=== PATIENT | female | born 1955 | race Caucasian/White ===

== ENCOUNTER 2017-05-13 19:43 | Inpatient (IN) | payer OTHER ==
[~2017-05-13] VITALS: Ht 165.1 cm; Wt 95.0 kg
[2017-05-13 19:49] VITALS: PULSE 158; RESP 18; O2SAT 97
--- NOTE | 2017-05-13 20:01 | ED.REPORT ---
HPI-Chest Pain 40 and Over Date of Service May 13, 2017 ED Provider: Attila Giron DO Pt is a 61 year old female with a history of A-fib and mitral valve repair who presents to the ED with concerns that she is having A-fib at this time onset 2 days ago. She reports that she feels like her heart is racing and having palpitations. Per pt, she had a mitral valve repair on 04/23/17 which was conducted through the rib. She was not prescribed any blood thinners, but she reports that she was taken off of Metoprolol 2 days ago. Nursing Notes Stated Complaint: AFIB/RAPID HEART RATE Chief Complaint: Chest Pain Nursing Notes Reviewed: Yes Allergies: Coded Allergies: No Known Allergies (Unverified , 05/13/17) Scheduled Aspirin Chew (Aspirin Chew) 81 Mg Chew 81 MG PO DAILY Colchicine (Colchicine) 0.6 Mg Tablet 0.6 MG PO DAILY Folic Acid (Folic Acid) 1 Mg Tablet 1 MG PO DAILY Multivitamin (Multi Vitamin Daily) 1 Each Tablet 1 EACH PO DAILY Scheduled PRN oxyCODONE-Acetaminophen 5-325 mg (oxyCODONE-Acetaminophen 5-325 mg) 1 Each Tablet 1 TAB PO Q4H PRN PRN For Pain General Time Seen by MD: 20:01 Chief Complaint Other (Rapid heart rate) Hx Obtained From: Patient Arrived By: Walk-in Sudden in Onset?: No Onset Occurred: 2 days ago Symptom Duration: Since onset Severity: Current: No pain currently Severity: Maximum: No pain Recent Healthcare: No recent doctor visit, No recent hospitalization Similar Sx Previous: Yes Past Medical History Past Medical History A-fib Past Surgical History Mitral valve repair Smoking History Unknown if Ever Smoker Social History Other Social History: Good social support Ambulatory Status Independent Review of Systems + Rapid heart rates + Sensation to palpations Constitutional: Denies: Fever Respiratory: Denies: Non-productive cough Complete sys rev & neg: except as marked. Physical Exam Initial Vital Signs Vital Signs (First) Date Time Temp Pulse Resp B/P Pulse Ox O2 Delivery O2 Flow Rate FiO2 05/13/17 19:49 36 158 18 97 Room Air 05/13/17 20:02 135/78 05/13/17 20:51 2 Initial VS: Reviewed Head / Eyes: Atraumatic, Normocephalic, PERRL ENT: Mucous membranes moist, Conjunctiva normal, No scleral icterus Extremities: Vascular intact, Neuro intact Skin: Warm, Dry, No cyanosis Neurologic: Alert, Oriented, Nonfocal Psychiatric: Mood/affect normal, Behavior normal General/Constitutional: Awake, Alert, Cooperative, Not toxic appearing Distress / Hydration: Positive: Distress mild Respiratory / Chest: Atraumatic, Breath sounds NL, Breath sounds = bilat CARDIOVASCULAR: Heart rate is too rapid to count; irregular at times and regular at other times. ECG shows flutter rate of 300. Abdomen: Atraumatic, Soft, Non-tender Benign. Interpretation & Diagnostics Lab Results Interpretation Result Diagram: 05/13/17195405/13/171954 Test 05/13/17 19:55 White Blood Count 8.5th/mm3 (3.8-10.1) Red Blood Count 4.26mil/mm3 (3.90-5.20) Hemoglobin 13.2g/dL (12.0-15.6) Hematocrit 38.4% (35.0-46.0) Mean Corpuscular Volume 90.1fL (81-100) Mean Corpuscular Hemoglobin 31.0pg (27.0-35.0) Mean Corpuscular Hemoglobin Concent 34.4% (32.0-37.0) Red Cell Distribution Width 12.0% (12.3-15.4) Platelet Count 313bil/L (150-400) Neutrophils (%) (Auto) 64.0% (40-74) Lymphocytes (%) (Auto) 25.2% (14-46) Monocytes (%) (Auto) 8.2% (4-12) Eosinophils (%) (Auto) 2.0% (0-5) Basophils (%) (Auto) 0.4% (0-3) Prothrombin Time 10.2sec (8.1-12.5) Prothromb Time International Ratio 0.95ratio Sodium Level 140mEq/L (134-144) Potassium Level 4.3mEq/L (3.5-5.2) Chloride Level 103mEq/L (97-108) Carbon Dioxide Level 21mmol/L (18-29) Blood Urea Nitrogen 15mg/dL (8-27) Creatinine 0.62mg/dL (0.57-1.00) Estimat Glomerular Filtration Rate 141mL/min (>59) Glucose Level 107mg/dL (60-99) Calcium Level 9.3mg/dL (8.5-10.1) Magnesium Level 1.8mg/dL (1.6-2.6) Total Bilirubin 0.3mg/dL (0.0-1.2) Aspartate Amino Transf (AST/SGOT) 17U/L (0-50) Alanine Aminotransferase (ALT/SGPT) 11U/L (0-32) Alkaline Phosphatase 42U/L (25-165) Troponin T < 0.010ug/L (0.0-0.011) Total Protein 7.0g/dL (6.4-8.4) Albumin 4.2g/dL (3.4-5.0) Thyroid Stimulating Hormone (TSH) 1.550uIU/mL (0.450-4.500) Hold Griffith Top Tube Received (Received) ECG Interpretation ECG Interpretation: Atrial flutter with 2:1 AV block IVCD, consider atypical RBBB LVH with secondary repolarization abnormality NO previous ECG available for comparison Time: 19:57 Interpreted by: ED physician Rhythm Strip Interpretation : Rhythm Strip Interpretation: Rate of 160 with flutter. Time: 20:02 Rhythm Strip Interpretation: Interpreted by me, Atrial fibrillation (Flutter ) CBC Interpretation CBC normal BMP / CMP Interpretation BMP/CMP normal X-Ray Chest Interpretation Chest Xray Interpretation: IMPRESSION: 1. Probable atelectasis at the right lung base in the left midlung as above. However, short interval followup is recommended to ensure resolution of these findings exclude underlying pulmonary pathology. Dictated by: Mabel Camp M.D. on 05/13/2017 at 20:45 View: Portable, 1 view Interpretation / Wet Read by: Interpret - Radiologist Re-Eval/Medical Decision Source of Hx: Old records Time of Eval: 21:22 Re-Evaluation/Progress Note: Cardizem drip infusion. Heart rate down to 77. I consulted with her cardiac surgeon, Dr. Haywood. He concurs and recommends considering echo and cardioversion. He also recommends 6 weeks of anticoagulation. Consultation : Referral / Consult Name: Oni Lopez MD Consulted With: Hospitalist Call Returned at: 21:32 Librarian Helper: Will see patient, Agrees with eval, Agrees with plan, Accepts admit Counseled Regarding: Diagnosis, Lab results, Need for admission Discharge & Departure Primary Impression: Atrial flutter with rapid ventricular response Disposition: ADMITTED TO HOSPITAL Discharge Condition All VS Reviewed: Yes Condition: Stable Referrals: Robel Dominguez MD (Family) Crit Care Except Billable Proc Time Spent: 30-74 minutes (60 minutes managing cardizem drip and rate control.) Scribe Attestation Portions of this note were transcribed by Carol Hennessy. I, Dr. Giron personally performed the history, physical exam and medical decision-making; I reviewed and confirmed the accuracy of the information in the transcribed note. Signed by: Devon Montanez, 05/13/17 and 21:50. copies to: Robel Dominguez MD, Todd P DO May 13, 2017 20:01 Carol Saldivar May 13, 2017 21:14
[2017-05-13 20:02] VITALS: BP 135/78; PULSE 152; RESP 20; O2SAT 96
[2017-05-13 20:05] LABS: BASOPHILS % (AUTO) 0.4 % (0-3); MONOCYTES % (AUTO) 8.2 % (4-12); Mean Corpuscular Volume 90.1 fL (81-100); Platelet Count 313 bil/L (150-400)
[2017-05-13] MEDS ORDERED: Diltiazem Inj 125 MG in 0.9% Sodium Chloride 100 ML, Pharmacy To Mix 1 EA IV SCH (20:05)
[2017-05-13] MEDS ORDERED: Diltiazem 5 mg/mL 5 mL Inj IVPUSH ONE (20:05)
[2017-05-13] MEDS ORDERED: 0.9% Sodium Chloride 1,000 ML IV ONE (20:05)
[2017-05-13 20:26] LABS: INR 0.95 ratio
[2017-05-13] MEDS ORDERED: MULT-1018 PO (20:31)
[2017-05-13] MEDS ORDERED: ASPI81TA3 PO (20:31)
[2017-05-13] MEDS ORDERED: OXYC1TAB24 PO (20:31)
[2017-05-13] MEDS ORDERED: COLC0.6T55 PO (20:31)
[2017-05-13] MEDS ORDERED: FOLI1TAB18 PO (20:31)
--- NOTE | 2017-05-13 20:48 | DRSVH ---
PROCEDURE: X-RAY CHEST ONE VIEW, PORTABLE ([id number]) INDICATIONS: rapid heart rate TECHNIQUE: One view of the chest was acquired. COMPARISON: None. FINDINGS: Surgical changes and devices: None. Lungs and pleura: Trace atelectasis is present within the left midlung and the right lung base. No ot her acute pulmonary radiopacities. No pleural effusion or pneumothorax. Mediastinum: Mediastinal contours appear normal. Heart size is normal. Bones and chest wall: No suspicious bony lesions. Overlying soft tissues appear unremarkable. IMPRESSION: 1. Probable atelectasis at the right lung base in the left midlung as above. However, short interval followup is recommended to ensure resolution of these findings exclude underlying pulmonary pathology . Dictated by: Mabel Camp M.D. on 05/13/2017 at 20:45 Approved by: Mabel Camp M.D. on 05/13/2017 at 20:46
[2017-05-13 20:50] LABS: Magnesium 1.8 mg/dL (1.6-2.6)
[2017-05-13 20:51] VITALS: BP 118/67; PULSE 78; RESP 14; O2SAT 99
[2017-05-13 20:52] LABS: TROPONIN T < 0.010 ug/L (0.0-0.011)
[2017-05-13] MEDS ORDERED: Heparin 25K Unit/500mL 0.45 NS 25,000 UNIT in IV Premix 1 EACH IV SCH ×3 (21:20→22:40)
[2017-05-13] MEDS ORDERED: Heparin 5,000 Unit/mL Inj IVPUSH ONE (21:20)
[2017-05-13] MEDS ORDERED: Heparin 5,000 Unit/mL Inj IVPUSH PRN (21:20)
[2017-05-13 22:01] VITALS: BP 147/53; PULSE 76; RESP 14; O2SAT 100
[2017-05-13] MEDS ORDERED: HYDROcodone-APAP 5-325 mg Tablet PO PRN (22:25)
[2017-05-13] MEDS ORDERED: Alum-Mag Hydrox-Simeth 30 mL Suspension PO PRN (22:25)
[2017-05-13] MEDS ORDERED: Ondansetron 2 mg/mL 2 mL Inj IVPUSH PRN (22:25)
[2017-05-13] MEDS ORDERED: Polyethylene Glycol (PEG) 17 Gm Powder PO PRN (22:25)
[2017-05-13 22:38] VITALS: BP 117/54; PULSE 78; RESP 17; O2SAT 95
[2017-05-13] MEDS: oxyCODONE-Acetamin 5-325 mg Tablet PO PRN (23:20)
--- NOTE | 2017-05-13 23:37 | PCM.HPMED ---
Subjective Date of Service May 13, 2017 Primary Provider: Admitting Physician: Oni Lopez MD Primary Care Physician: Ibeth Shine MD Attending Physician: Oni Lopez MD Chief Complaint: Fast heart rate History of Present Illness: 61-year-old woman with history of mitral valve repair roughly 19 days ago presents with feeling of her heart beating very fast, and some lightheadedness. She denies any shortness of breath, but does claim to have substernal chest pain when taking a deep breath. Current medications are only colchicine, Arellano catheter, and aspirin 81 mg daily. Symptoms started 2 days ago, which she describes as "A.fib" not currently on any blood thinners, was taken off metoprolol 2 days ago for low blood pressure. On presentation temperature 36 mL 158, 18, 135/78, 97% on room air. CBC unremarkable CMP unremarkable INR 0.95 magnesium 1.8 troponin negative. TSH 1.55 EKG atrial flutter with 2-1 AV block, "IVCD, consider atypical RBBB, LVH with secondary repolarization abnormality, no previous EKG to compare." No signs of acute ischemia, infarction. QTC 543 Chest x-ray showed probable atelectasis in the right lung base and left midlung. Emergency room physician spoke with her information services consultant wanted her to be heparinized and 6 weeks of anticoagulation and apparently has an appointment on Thursday. Cardiology on-call for [facility] was consulted who said they would see her in the morning. Patient was started on Cardizem drip after not responding to Cardizem bolus, and heparin drip was started. Her rate became controlled in the 70s and 80s, however remained atrial flutter. Review of Systems: A comprehensive review of systems was conducted with the patient and found to be negative except as above in the history of presenting illness. Allergies Coded Allergies: No Known Allergies (Unverified , 05/13/17) Home Medications ASA 81 mg daily Colchicine 0.6 mg daily Folic acid 1 mg by mouth daily Multivitamin Oxycodone-acetaminophen 5-325 every 4 hours when necessary postsurgical pain PMH Hypothyroidism Surgical History Mitral valvuloplasty with ring placement to [place] valve. Left knee meniscus repair Endometrial ablation Family History Father CVA Mother renal failure, diabetes mellitus type II late onset, hypertension, also had heart valve issues. Social History Hx Alcohol Use: Yes (2 drinks a day) Hx Substance Use: No Hx Tobacco Use: Yes Smoking Status: Former Smoker (quit 05/29/1977), Unknown if Ever Smoker Living Arrangement: with Family Exam Vital Signs Vital Sign - Last Date Time Temp Pulse Resp B/P Pulse Ox O2 Delivery O2 Flow Rate FiO2 05/13/17 22:01 76 14 147/53 100 Room Air 05/13/17 20:51 2 05/13/17 19:49 36 Exam General: Laying in bed, no apparent distress. HEENT: Normocephalic, atraumatic, EOMI grossly, mucous membranes moist, neck supple without lymphadenopathy, PERRLA, conjunctiva pink. Cardiovascular: Regular rate and rhythm, no clicks murmurs rubs, peripheral pulses 2/4 equal bilaterally- rhythm on monitor shows heart rate 77, 2-1 atrial flutter. Pulmonary: Bibasilar rales, right greater than left. Abdominal: Soft to palpation, bowel sounds present 4, no hepatosplenomegaly. Negative rebound. Extremities: No edema appreciated. No tenderness, asymmetry. Neuro: Neurologically grossly intact, strength is equal bilaterally upper and lower extremities. MSK: Able to move extremities on their own volition, strength 5 out of 5 equal bilaterally to upper and lower extremities. Psych: Oriented to person place time and situation. Appropriate mood and affect. Lab and Diagnostics Result Diagram: 05/13/17195405/13/171954 X-Rays, CTs and MRIs Chest x-ray performed 05/13/2017 IMPRESSION: 1. Probable atelectasis at the right lung base in the left midlung as above. However, short interval followup is recommended to ensure resolution of these findings exclude underlying pulmonary pathology. Dictated by: Mabel Camp M.D. on 05/13/2017 at 20:45 12-lead ECG EKG atrial flutter with 2-1 AV block, "IVCD, consider atypical RBBB, LVH with secondary repolarization abnormality, no previous EKG to compare." No signs of acute ischemia, infarction. QTC 543 Assessment & Plan 61-year-old woman with hypothyroidism who is status post mitral repair and ring placement postop day 20 now, not on anticoagulation, experienced rapid heart rate worsening over the last 2 days, found to be in atrial flutter treated with diltiazem drip, and is now rate controlled but is still in atrial flutter. Acute refractory atrial flutter, present on admission, active EKG showed atrial flutter, 2-1 block, initially refractory to diltiazem bolus, rate controlled to diltiazem drip, still in a flutter. Chronic valve disease status post repair Attempt to transfer from diltiazem drip to oral diltiazem 30 mg 4 times a day. If heart rate becomes uncontrolled once again placed on diltiazem drip Cardiology consultation to evaluate for cardioversion Heparin drip Cardiac surgeon reportedly wanted patient anticoagulated for 6 weeks, anticipate bridged to warfarin. ASA 81 mg daily Has appointment with cardiac surgeon on 05/18/2017. Recommend keeping the appointment Magnesium 1.8, will supplement IV. Place on telemetry Prolonged QTC, chronicity unknown, POA active QTC 543, Cardiology consultation as above On telemetry as above Magnesium supplementation as above Avoid known QTC prolonged bleeding medications if possible. Postsurgical pain, POA, active Status post mitral valve repair, transthoracic approach Patient is on oxycodone-acetaminophen 3-325 every 6 hours when necessary for pain. Continue home medication Stated Hypothyroidism, POA, stable TSH 1.55, not on any home medications. Chronic obesity, POA, active BMI 34.7 Dietary/nutrition consult Patient is admitted to inpatient status, greater than 2 minutes and dissipated based on presenting symptoms, complexity of care, and anticipated risk of adverse events. Pain Evaluation: Adequate Pain Control GI Prophylaxis: Not indicated VTE Prophylaxis Indicated: Meets Criteria for Anticoag Therapy VTE Prophylaxis: Other (Heparin GGT) Resuscitation Status: CPR: Attempt Resuscitation Attending Statement The patient was seen and examined together with Dr. Shaw on 05/13 and I agree with the history, exam and plan as outlined in the note above. David Mariee DO May 13, 2017 22:36 Oni Lopez MD May 14, 2017 01:39
[2017-05-13] MEDS ORDERED: Magnesium Sulf 2 Gm/50mL Water 2 GM in IV Premix 1 EACH IV ONE (23:40)
--- NOTE | 2017-05-13 23:56 | NUR ---
Admit Pt arrived on unit at [address]. pt ambulated to BR and scale with steady gait and only SBA with IV pole. Pt A&Ox3, VSS, states chest pain/incisional pain is 5/10 and unchanged today. Visualized well healing incisions on right breast and right upper underarm r/t mitral valve repair 04/23/17. verbal health history given. med rec completed. See flowsheet for full assessment.
[2017-05-14] VITALS (9 sets, daily range): BP systolic 107–122; BP diastolic 58–72; PULSE 75–98; RESP 13–20; O2SAT 95–98
[2017-05-14 03:33] LABS: BASOPHILS % (AUTO) 0.2 % (0-3); EOSINOPHILS % (AUTO) 1.8 % (0-5); MONOCYTES % (AUTO) 10.7 % (4-12); Mean Corpuscular Hemoglobin 30.3 pg (27.0-35.0); Mean Corpuscular Volume 92.3 fL (81-100); NEUTROPHILS % (AUTO) 61.9 % (40-74); Platelet Count 269 bil/L (150-400)
[2017-05-14] MEDS: Heparin 5,000 Unit/mL Inj IVPUSH PRN ×3 (04:20→22:57)
[2017-05-14] MEDS: oxyCODONE-Acetamin 5-325 mg Tablet PO PRN ×3 (08:56→19:48)
--- NOTE | 2017-05-14 10:19 | NUR ---
Social Work: Screening Data: Pt is a 61 y/o female admitted for new onset AFIB with RVR cardizem drip. Pt's PCP is Dr Zamudio, pt's insurance is [facility]. Readmit score not listed. EMR reviewed. No d/c planning needs anticipated at this time. [employer] will continue to follow if needs arise. Assessment: Pt who is independent at baseline. Plan: Pt will d/c home via POV when medically stable. No d/c planning needs anticipated at this time. MORTGAGE LENDER will continue to follow if needs arise. ALEJANDRA Zarco
--- NOTE | 2017-05-14 10:39 | PCM.CHPCAR ---
Consult Subjective Date of service May 14, 2017 Date of admit May 13, 2017 at 21:51 Provider Requesting Consult Requesting Provider: David Mariee DO Primary Care Physician Primary Care Physician: Ibeth Shine MD Chief Complaint Palpitations/Chest pain History of Present Illness This is a 61-year-old female with recent mitral valve surgery for what sounds like severe mitral regurgitation. The patient was found to have this by her OB/ [employer]ILER PL[employer] OPER[employer] physician recently. She was seen by client technologies analyst at [place]. Details of her echocardiogram and surgery are not available to me at this time. Apparently she did not have a transesophageal echocardiogram prior to her MV surgery. The patient was referred for minimal invasive mitral valve repair. According to the patient was a success. However since Thursday which was about 16 days since her surgery she developed significant fatigue and palpitations. She was not able to record her blood pressure and her pulse. Apparently she went to go to buy a new machine but she was still getting the same results. Event he has a she decided to come into the emergency room. She was advised by her client technologies analyst over the phone to stop taking metoprolol because her blood pressure was rather low. In the ER she was found to have atrial flutter with 2- 1 AV randy conduction with heartbeats around 150 bpm. She was given intravenous diltiazem and her heart rate has come down nicely. At rest her heart rates around 70-90 bpm. She has no other complaints at this time except for inspirational chest discomfort. She has become somewhat sedentary since her surgery. She has never been informed that she has congestive heart failure. She had a coronary angiogram prior to her surgery which was normal as per the patient. Review of Systems Review of Systems CONSTITUTIONAL: Negative for fever, weight loss or weight gain. HEENT: Eyes: Negative for glaucoma or cataracts. Ears: Negative pain or loss of hearing. Nose: Negative for nasal congestion. Negative for rhinorrhea or postnasal drip. Mouth: Negative for false teeth. Throat: Negative for masses or hoarseness. Negative for snoring. CARDIOVASCULAR: Positive for chest pain or palpitations, but negative for near syncope, syncope, PND, or orthopnea. RESPIRATORY: Negative for shortness of breath, hemoptysis, COPD, cough. GASTROINTESTINAL: Negative for nausea, vomiting, diarrhea or heartburn. GENITOURINARY: Negative for dysuria. MUSCULOSKELETAL: Negative for osteoarthritis. SKIN: Negative for rashes. NEUROLOGIC: Negative for headaches, blurry vision, CVA, mental status changes. PSYCHIATRIC: Negative for depression. Negative for daytime sleepiness or insomnia. ENDOCRINE: Negative for diabetes or thyroid abnormalities. HEMATOLOGIC: Negative for anemia or blood dyscrasias. PMH Past Medical History 1. History of severe mitral regurgitation status post mitral valve repair 2. Hypothyroidism Scheduled Aspirin Chew (Aspirin Chew) 81 Mg Chew 81 MG PO DAILY (Reported) Colchicine (Colchicine) 0.6 Mg Tablet 0.6 MG PO DAILY (Reported) Folic Acid (Folic Acid) 1 Mg Tablet 1 MG PO DAILY (Reported) Multivitamin (Multi Vitamin Daily) 1 Each Tablet 1 EACH PO DAILY (Reported) Scheduled PRN oxyCODONE-Acetaminophen 5-325 mg (oxyCODONE-Acetaminophen 5-325 mg) 1 Each Tablet 1 TAB PO Q4H PRN PRN For Pain (Reported) Current Inpatient Medications Current Medications Diltiazem HCl/ Sodium Chloride/ Miscellaneous 125 ml @ 5 mls/hr Q24H IV Last administered on 05/13/17t 20:24; Admin Dose 5 MLS/HR; Start 05/13/17 at 20:05; Stop 05/13/17 at 22:47; Status DC Heparin Sodium (Porcine) Per Protocol for a... PRN PRN IVPUSH; Start 05/13/17 at 21:20; Stop 05/13/17 at 22:44; Status DC Al Hydrox/Mg Hydrox/Simethicone 30 ml Q6H PRN PO; Start 05/13/17 at 22:25 Ondansetron HCl 4 to 8 mg Q4H PRN IVPUSH; Start 05/13/17 at 22:25 Senna 17.2 mg BID PRN PO; Start 05/13/17 at 22:25 Polyethylene Glycol 17 gm DAILY PRN PO; Start 05/13/17 at 22:25 Acetaminophen/ Hydrocodone Bitart 1-2 TABS Q4H PRN PO; Start 05/13/17 at 22:25 ; Stop 05/13/17 at 23:08; Status DC Heparin Sodium/ Sodium Chloride/ Premix 500 ml @ 0 mls/hr Q0M IV; Start at 22:25; Stop 05/13/17 at 22:41; Status DC Heparin Sodium (Porcine) Per Protocol for a... PRN PRN IVPUSH Last administered on 05/14/17 04:20; Admin Dose 1,000 UNIT; Start 05/13/17 at 22:40 Diltiazem HCl 30 mg Q6H PO Last administered on 05/14/17 06:14; Admin Dose 30 MG; Start 05/13/17 at 23:00 Aspirin 81 mg DAILY PO Last administered on 05/14/17 08:56; Admin Dose 81 MG; Start 05/14/17 at 08:30 Folic Acid 1 mg DAILY PO Last administered on 05/14/17 08:56; Admin Dose 1 MG; Start 05/14/17 at 08:30 Oxycodone/ Acetaminophen 1 tab Q4H PRN PO Last administered on 05/14/17 08:56 ; Admin Dose 1 TAB; Start 05/13/17 at 23:05 Multivitamins/ Minerals Therapeutic 1 tablet DAILY PO Last administered on 08:56; Admin Dose 1 TABLET; Start 05/14/17 at 08:30 Allergies: Coded Allergies: No Known Allergies (Unverified , 05/13/17) Family History Family History Father CVA Mother renal failure, diabetes mellitus type II late onset, hypertension, also had heart valve issues. Social History Hx Alcohol Use: Yes (2 drinks a day)Alcoholic Drinks Per Day: 2 glasses wine/ dayHx Substance Use: NoHx Tobacco Use: Yes Smoking Status: Former Smoker (quit 05/29/1977) Unknown if Ever Smoker Living Arrangement: with Family Exam Vital Signs Vital Sign - Last Date Time Temp Pulse Resp B/P Pulse Ox O2 Delivery O2 Flow Rate FiO2 05/14/17 09:01 77 05/14/17 08:38 36.5 14 122/61 98 Room Air 05/13/17 20:51 2 Intake and Output 05/13/17 05/13/17 05/14/17 Cumulative From/Thru 15:00 23:00 07:00 05/13/17 19:49 - 05/14/17 06:21 Intake Total 1000 ml 297 ml 1297 ml Balance 1000 ml 297 ml 1297 ml Intake Oral 100 ml 100 ml IV Total 1000 ml 197 ml 1197 ml General: Pleasant Cooperative Mildly obese Skin: Warm & dry to touch Head: Normocephalic Eye: EOMS intact No arcus or xanthelasma Neck: No JVD Ears, Nose & Throat: Ears no gross abnormalities Nose no gross abnormalities Chest: Clear auscultation w/o rales/wheeze Cardiac: Normal non-displaced apical impulse Regular rhythm Normal S1 and S2 No murmurs Pulses: Pulses full/equal all extremities Abdomen: Soft, non-distended, non-tender Extremities: Warm w/o deformities,erythema noted Neurological: Alert & oriented No gross motor or sensory deficits Psychological: Affect & interaction appropriate Memory grossly intact Lab and Diagnostics Labs CBC Test 05/14/17 03:00 05/14/17 08:25 White Blood Count 8.8th/mm3 (3.8-10.1) Red Blood Count 3.89mil/mm3 (3.90-5.20) Mean Corpuscular Volume 92.3fL (81-100) Mean Corpuscular Hemoglobin 30.3pg (27.0-35.0) Mean Corpuscular Hemoglobin Concent 32.9% (32.0-37.0) Red Cell Distribution Width 12.0% (12.3-15.4) Platelet Count 269bil/L (150-400) Neutrophils (%) (Auto) 61.9% (40-74) Lymphocytes (%) (Auto) 25.3% (14-46) Monocytes (%) (Auto) 10.7% (4-12) Eosinophils (%) (Auto) 1.8% (0-5) Basophils (%) (Auto) 0.2% (0-3) Hemoglobin 12.3g/dL (12.0-15.6) Hematocrit 37.0% (35.0-46.0) CMP Test 05/13/17 19:55 05/14/17 03:00 Magnesium Level 1.8mg/dL Troponin T < 0.010ug/L Thyroid Stimulating Hormone (TSH) 1.550uIU/mL Hold Griffith Top Tube Received Sodium Level 141mEq/L Potassium Level 4.4mEq/L Chloride Level 106mEq/L Carbon Dioxide Level 20mmol/L Blood Urea Nitrogen 14mg/dL Creatinine 0.49mg/dL Estimat Glomerular Filtration Rate 185mL/min Glucose Level 108mg/dL Calcium Level 8.9mg/dL Total Bilirubin 0.3mg/dL Aspartate Amino Transf (AST/SGOT) 15U/L Alanine Aminotransferase (ALT/SGPT) 9U/L Alkaline Phosphatase 41U/L Total Protein 6.1g/dL Albumin 3.7g/dL Result Diagram: 05/14/1782405/14/17 0300 Assessment & Plan Problems: (1) Atrial flutter with rapid ventricular response Plan: Most likely she is having postoperative typical atrial flutter. Hopefully this is just a transient episode. However we discussed about how to go about managing her atrial flutter for the time being. I will like to go ahead and switch her from short acting diltiazem to long-acting diltiazem. She did state that when she was taking beta blockers that she was feeling somewhat fatigue which has improved since stopping her metoprolol. She appears be tolerating quite well the diltiazem. However I am little concern about her chest pain and the fact that it hurts on deep inspiration. Given her sedentary state since her surgery and certainly high risk for developing pulmonary embolism I think it would be prudent to get a CT chest angiogram to rule out pulmonary embolism. She is also scheduled to get an echocardiogram to evaluate her ejection fraction and her mitral valve. It is very unlikely this is acute coronary syndrome since her angiogram as per the patient was negative for any CAD. If her CT of chest is negative for pulmonary embolism then she may transition into Eliquis 5 mg twice a day. I have switched her to diltiazem CD 180 mg twice a day. She will need to stop ASA. She already has established with a client technologies analyst in [place] and she should continue follow-up with him for now. If she continues to stay in atrial flutter when she sees Dr. Deutsch ( client technologies analyst) then certainly I would recommend atrial flutter ablation which we talked about the risk and benefits of this procedure. If she continues to be stable by tomorrow morning thenshe may go home. Apparently she already has an appointment to see her cardiothoracic surgeon sometime in the next week or so. Of note, I have already called in for Eliquis 5 mg BID for 60 tablets with 3 refills to see if her insurance will cover this. Status: Acute ICD Code: I48.92 (2) H/O mitral valve repair Status: Chronic ICD Code: Z98.890 Pain Evaluation: Adequate Pain Control VTE Prophylaxis Indicated: Meets Criteria for Anticoag Therapy VTE Prophylaxis: Other (Heparin GGT) Resuscitation Status: CPR: Attempt Resuscitation Time spent 60 minutes Damion Rodriguez MD May 14, 2017 10:39
[2017-05-14] MEDS: Diltiazem CD 180 mg ER24 Capsule PO SCH ×2 (11:01→19:47)
--- NOTE | 2017-05-14 14:17 | DRSVH ---
PROCEDURE: CT ANGIO CHEST PULMONARY EMBOLISM ([id number]) INDICATIONS: r/o PE, chest pain TECHNIQUE: After the administration of intravenous contrast, 2 mm thick sections acquired from the pulmonary api leonila to the posterior costophrenic angles. 3-dimensional maximum intensity projection (MIP) coronal a nd sagittal reformats were then acquired through the thorax. For radiation dose reduction, the follo wing was used: automated exposure control, adjustment of mA and/or kV according to patient size. COMPARISON: [facility], CR, CHEST 2VW, 06/29/2008, 15:31. [facility], CR, CHEST 2VW, 08/15/2008, 14:02. [facility], CT, CHEST WITH CONTRAST, 08/17/2008, 13:26. [facility], CT, CHEST WITH CONTRAST, 02/13/2009, 11:21. [facility], CR, XR HEMANTH ST 1VW (PORTABLE), 05/13/2017, 20:08. FINDINGS: Image quality: Excellent. Pulmonary arteries: Pulmonary arteries are normal in size, and demonstrate no intraluminal filling d efects to suggest central pulmonary embolism. Lungs and pleura: Lungs are abnormal with reduced inspiratory volume bilaterally, and chronic lung s carring is again seen in the perihilar left midlung in a bronchovascular distribution, present at [facility] since 2007. There also is a small degree of lung consolidation at the right lung base with a slig ht adjacent pleural effusion. No left-sided pleural effusions or pneumothorax bilaterally. Central and peripheral airways are alba nt. Mediastinum: Heart size is normal, without pericardial effusion. No mediastinal or hilar adenopathy . Thoracic aorta is normal in caliber and enhancement. Esophagus is normal in caliber, without hiat al hernia. Bones and chest wall: No suspicious bony lesions. Ribs and thoracic spine appear intact throughout. Thyroid gland appears normal where well visualized. No axillary or supraclavicular adenopathy. Abdomen: Visualized upper abdominal solid organs appear normal in the early arterial phase of enhanc ement. IMPRESSION: Chronic lung disease with chronic left midlung perihilar consolidation, in a bronchovascu lar distribution, also present in 2007. A pulmonary embolus is not seen. Mild right lung base poste rior alveolar consolidation with small adjacent pleural effusion. Currently pulmonary edema is not s uspected within the reduced inspiratory volume is taken into account. Dictated by: Watson Velásquez M.D. on 05/14/2017 at 14:08 Approved by: Watson Veálsquez M.D. on 05/14/2017 at 14:15
--- NOTE | 2017-05-14 16:52 | PCM.PNMED ---
Subjective Date of Service May 14, 2017 Subjective She is doing well however she is having a lot of heart racing with standing or moving. Her rate control is slowly improving. She denies any cough. She is having some right-sided pleuritic pain. No nausea. No abdominal pain. Exam Vital Signs Vital Sign - Last Date Time Temp Pulse Resp B/P Pulse Ox O2 Delivery O2 Flow Rate FiO2 05/14/17 12:37 36.6 77 14 115/63 95 Room Air 05/13/17 20:51 2 Intake and Output 05/13/17 05/13/17 05/14/17 Cumulative From/Thru 15:00 23:00 07:00 05/13/17 19:49 - 05/14/17 06:21 Intake Total 1000 ml 297 ml 1297 ml Balance 1000 ml 297 ml 1297 ml Intake Oral 100 ml 100 ml IV Total 1000 ml 197 ml 1197 ml Exam Alert and oriented -3, no distress. Fluent speech Anicteric sclera. Lungs are clear with normal rate and effort Heart is regular without murmur gallop or rub Abdomen soft nontender, flat Extremities are free of edema. Skin is free of rash or lesions. Lab and Diagnostics Result Diagram: 05/14/17 0825 05/14/17 0300 X-Rays, CTs and MRIs Chest x-ray performed 05/13/2017 IMPRESSION: 1. Probable atelectasis at the right lung base in the left midlung as above. However, short interval followup is recommended to ensure resolution of these findings exclude underlying pulmonary pathology. Dictated by: Mabel Camp M.D. on 05/13/2017 at 20:45 12-lead ECG EKG atrial flutter with 2-1 AV block, "IVCD, consider atypical RBBB, LVH with secondary repolarization abnormality, no previous EKG to compare." No signs of acute ischemia, infarction. QTC 543 Assessment & Plan 61-year-old woman with hypothyroidism who is status post mitral repair and ring placement postop day 20 now, not on anticoagulation, experienced rapid heart rate worsening over the last 2 days, found to be in atrial flutter treated with diltiazem drip, and is now rate controlled but is still in atrial flutter. #. Acute refractory atrial flutter, present on admission, active We will continue to uptitrate her diltiazem for rate control for another night. We will obtain a 2-D echo to reassess the mitral valve at the repair site. We will also obtain a CT angiogram to rule out pulmonary embolism. We will maintain a heparin drip while obtaining all was from her outpatient pharmacy. #. Prolonged QTC, chronicity unknown, POA active QTC 543, Cardiology consultation as above On telemetry as above Magnesium supplementation as above Avoid known QTC prolonged bleeding medications if possible. #. Recent mitral valve repair, POA. #. Postsurgical pain, POA, active Status post mitral valve repair, transthoracic approach Patient is on oxycodone-acetaminophen 3-325 every 6 hours when necessary for pain. Continue home medication #. Chronic Hypothyroidism, POA, stable TSH 1.55, not on any home medications. Chronic obesity, POA, active BMI 34.7 Dietary/nutrition consult Patient is admitted to inpatient status, greater than 2 minutes and dissipated based on presenting symptoms, complexity of care, and anticipated risk of adverse events. Anticipate probable discharge after killing improved rate control on May 15. GI Prophylaxis: Not indicated VTE Prophylaxis: Other (Heparin GGT) Resuscitation Status: CPR: Attempt Resuscitation Nilesh Pinto MD May 14, 2017 16:52
--- NOTE | 2017-05-14 17:54 | NUR ---
Chest pain/tele/activity Patient in Afib with rate of 70-80s at rest, increases to 140-150s with activity. VSS. C/o chest pain 5/10 with movement and/or deep breathing, relieved with PO oxycodone. Pt s/p minimally invasive mitral valve replacement. Has been using incentive spirometer at home and continues here at hospital. Patient up ambulating independently in room. Family at bedside, call light within reach.
[2017-05-15] MEDS: oxyCODONE-Acetamin 5-325 mg Tablet PO PRN ×2 (01:32→09:14)
[2017-05-15 03:30] VITALS: BP 116/71; PULSE 74; RESP 16; O2SAT 96
[2017-05-15 04:55] VITALS: PULSE 76
--- NOTE | 2017-05-15 05:50 | NUR ---
Pain/Heparin Pt c/o pain in her right chest area from her recent surgery 5-05/02. Administered 1 Tab percocet x2 and effective at decreasing the pain for a short period of time. Pt continues on Heparin gtt. Pt is scheduled for ECHO today and then should DC shortly after.
[2017-05-15 08:00] VITALS: PULSE 75
--- NOTE | 2017-05-15 08:40 | PCM.PNCARD ---
Subjective Date of service May 15, 2017 Chief Complaint Palpitations/Chest pain History of Present Illness This is a 61-year-old female with recent mitral valve surgery for what sounds like severe mitral regurgitation. The patient was found to have this by her OB/ TAPEMAN physician recently. She was seen by web marketing coordinator at [place]. Details of her echocardiogram and surgery are not available to me at this time. Apparently she did not have a transesophageal echocardiogram prior to her MV surgery. The patient was referred for minimal invasive mitral valve repair. According to the patient was a success. However since Thursday which was about 16 days since her surgery she developed significant fatigue and palpitations. She was not able to record her blood pressure and her pulse. Apparently she went to go to buy a new machine but she was still getting the same results. Event he has a she decided to come into the emergency room. She was advised by her web marketing coordinator over the phone to stop taking metoprolol because her blood pressure was rather low. In the ER she was found to have atrial flutter with 2- 1 AV randy conduction with heartbeats around 150 bpm. She was given intravenous diltiazem and her heart rate has come down nicely. At rest her heart rates around 70-90 bpm. She has no other complaints at this time except for inspirational chest discomfort. She has become somewhat sedentary since her surgery. She has never been informed that she has congestive heart failure. She had a coronary angiogram prior to her surgery which was normal as per the patient. Constitutional: Denies: Fever ENT: Denies: Ear Pain Eyes: Denies: Blurred Vision, Conjunctive Inflammation Cardiovascular: Reports: Chest Pain, Denies: SOB on Exertion, SOB while laying flat Respiratory: Denies: Cough, SOB with Exertion, Shortness of Breath Gastrointestinal: Denies: Abdominal Pain, Change in Appetite Neurological: Denies: Confusion Exam Vital Signs Vital Sign - Last Date Time Temp Pulse Resp B/P Pulse Ox O2 Delivery O2 Flow Rate FiO2 05/15/17 04:55 76 05/15/17 03:30 36.6 16 116/71 96 Room Air 05/13/17 20:51 2 Intake and Output 05/14/17 05/14/17 05/15/17 Cumulative From/Thru 15:00 23:00 07:00 05/13/17 19:49 - 05/15/17 05:48 Intake Total 770 ml 270 ml 2337 ml Output Total 1200 ml 1200 ml Balance -430 ml 270 ml 1137 ml Intake Oral 520 ml 620 ml IV Total 250 ml 270 ml 1717 ml Output Urine Total 1200 ml 1200 ml # Bowel Movements 0 0 General: [facility] Lab and Diagnostics Labs CBC Test 05/14/17 03:00 05/15/17 03:25 White Blood Count 8.8th/mm3 (3.8-10.1) Red Blood Count 3.89mil/mm3 (3.90-5.20) Mean Corpuscular Volume 92.3fL (81-100) Mean Corpuscular Hemoglobin 30.3pg (27.0-35.0) Mean Corpuscular Hemoglobin Concent 32.9% (32.0-37.0) Red Cell Distribution Width 12.0% (12.3-15.4) Platelet Count 269bil/L (150-400) Neutrophils (%) (Auto) 61.9% (40-74) Lymphocytes (%) (Auto) 25.3% (14-46) Monocytes (%) (Auto) 10.7% (4-12) Eosinophils (%) (Auto) 1.8% (0-5) Basophils (%) (Auto) 0.2% (0-3) Hemoglobin 11.3g/dL (12.0-15.6) Hematocrit 34.6% (35.0-46.0) CMP Test 05/13/17 19:55 05/14/17 03:00 Magnesium Level 1.8mg/dL Troponin T < 0.010ug/L Thyroid Stimulating Hormone (TSH) 1.550uIU/mL Hold Griffith Top Tube Received Sodium Level 141mEq/L Potassium Level 4.4mEq/L Chloride Level 106mEq/L Carbon Dioxide Level 20mmol/L Blood Urea Nitrogen 14mg/dL Creatinine 0.49mg/dL Estimat Glomerular Filtration Rate 185mL/min Glucose Level 108mg/dL Calcium Level 8.9mg/dL Total Bilirubin 0.3mg/dL Aspartate Amino Transf (AST/SGOT) 15U/L Alanine Aminotransferase (ALT/SGPT) 9U/L Alkaline Phosphatase 41U/L Total Protein 6.1g/dL Albumin 3.7g/dL Result Diagram: 05/15/17 0325 05/14/17 0300 Assessment & Plan Problems: (1) Atrial flutter with rapid ventricular response Plan: Most likely she is having postoperative typical atrial flutter. Hopefully this is just a transient episode. However we discussed about how to go about managing her atrial flutter for the time being. I have switched her to long acting Diltiazem and her HR at rest is stable. She still has some RVR with exertion but she is predominantly asymptomatic. She did state that when she was taking beta blockers that she was feeling somewhat fatigue which has improved since stopping her metoprolol. She appears be tolerating quite well the diltiazem. She is also scheduled to get an echocardiogram today to evaluate her ejection fraction and her mitral valve. It is very unlikely this is acute coronary syndrome since her angiogram as per the patient was negative for any CAD. Her CT chest was negative for PE. I have switched her to diltiazem CD 180 mg twice a day. She will need to stop ASA and start Eliquis 5 mg po bid which she already got from the pharmacy. She already has established with a web marketing coordinator in [place] and she should continue follow-up with him for now. If she continues to stay in atrial flutter when she sees Dr. Deutsch ( web marketing coordinator) then certainly I would recommend atrial flutter ablation which we talked about the risk and benefits of this procedure. She may go home today. Apparently she already has an appointment to see her cardiothoracic surgeon sometime in the next week or so. Status: Acute ICD Code: I48.92 (2) H/O mitral valve repair Status: Chronic ICD Code: Z98.890 Pain Evaluation: Adequate Pain Control GI Prophylaxis: Not indicated VTE Prophylaxis: Other (Heparin GGT) Resuscitation Status: CPR: Attempt Resuscitation Time spent 15 min. Damion Rodriguez MD May 15, 2017 08:40
[2017-05-15 09:02] VITALS: BP 121/54; PULSE 77; RESP 16; O2SAT 97
[2017-05-15 09:10] VITALS: PULSE 77
[2017-05-15] MEDS: Diltiazem CD 180 mg ER24 Capsule PO SCH (09:14)
--- NOTE | 2017-05-15 12:46 | PCM.DIMED ---
Discharge Instructions Date of Service May 15, 2017 Dates of Hospitalization May 13, 2017 at 21:51 Discharge Diagnosis Discharge Diagnosis #. Acute refractory atrial flutter, improved. #. Recent mitral valve repair, stable #. Postsurgical right thorax pain, stable. #. Chronic Hypothyroidism, stable #. Chronic obesity, stable Diet Discharge Diet: No restrictions Activity Discharge Activity: Limited until seen by PCP Call your provider Call your provider for: Fever or Chills, Shortness of breath Patient Instructions Patient Instructions Follow-up with Dr. Haywood, your cardiothoracic surgery next Thursday as scheduled. Nilesh Pinto MD May 15, 2017 12:46
[2017-05-15] MEDS ORDERED: DILT180C66 PO (12:49)
[2017-05-15] MEDS ORDERED: APIX5TAB PO (12:49)
--- NOTE | 2017-05-15 12:56 | PCM.DC.MED ---
Discharge Summary Date of Service May 15, 2017 Dates of Hospitalization Date of Hospital Admission May 13, 2017 at 21:51 Date of Discharge: May 15, 2017 Providers: Admitting Physician: Oni Lopez MD Primary Care Physician: Ibeth Shine MD Attending Physician: Oni Lopez MD Diagnosis at Time of Discharge Diagnosis at Time of Discharge #. Acute refractory atrial flutter, improved. #. Recent mitral valve repair, stable #. Postsurgical right thorax pain, stable. #. Chronic Hypothyroidism, stable #. Chronic obesity, stable Consultations Dr. Ruiz, cardiology Procedures XRay, CTs & MRIs Chest x-ray performed 05/13/2017 IMPRESSION: 1. Probable atelectasis at the right lung base in the left midlung as above. However, short interval followup is recommended to ensure resolution of these findings exclude underlying pulmonary pathology. Dictated by: Mabel Camp M.D. on 05/13/2017 at 20:45 ECG 12 Lead EKG atrial flutter with 2-1 AV block, "IVCD, consider atypical RBBB, LVH with secondary repolarization abnormality, no previous EKG to compare." No signs of acute ischemia, infarction. QTC 543 Cardiac Echo Impression Unremarkable. Good mitral valve repair without evidence of regurgitation. Invasive Procedures None Brief History This is a 61-year-old female with recent mitral valve surgery for what sounds like severe mitral regurgitation. The patient was found to have this by her OB/ COMMUNITY SUPPORT WORKER physician recently. She was seen by tree tapping laborer at [place]. Details of her echocardiogram and surgery are not available to me at this time. Apparently she did not have a transesophageal echocardiogram prior to her MV surgery. The patient was referred for minimal invasive mitral valve repair. According to the patient was a success. However since Thursday which was about 16 days since her surgery she developed significant fatigue and palpitations. She was not able to record her blood pressure and her pulse. Apparently she went to go to buy a new machine but she was still getting the same results. Event he has a she decided to come into the emergency room. She was advised by her tree tapping laborer over the phone to stop taking metoprolol because her blood pressure was rather low. In the ER she was found to have atrial flutter with 2- 1 AV randy conduction with heartbeats around 150 bpm. She was given intravenous diltiazem and her heart rate has come down nicely. At rest her heart rates around 70-90 bpm. She has no other complaints at this time except for inspirational chest discomfort. She has become somewhat sedentary since her surgery. She has never been informed that she has congestive heart failure. She had a coronary angiogram prior to her surgery which was normal as per the patient. Hospital Course 61-year-old woman with hypothyroidism who is status post mitral repair and ring placement postop day 20 now, not on anticoagulation, experienced rapid heart rate worsening over the last 2 days, found to be in atrial flutter treated with diltiazem drip, and is now rate controlled but is still in atrial flutter. #. Acute refractory atrial flutter, present on admission, active We will continue to uptitrate her diltiazem for rate control for another night. We will obtain a 2-D echo to reassess the mitral valve at the repair site. We will also obtain a CT angiogram to rule out pulmonary embolism. We will maintain a heparin drip while obtaining all was from her outpatient pharmacy. She was heparinized and rate control. 2-D echo was unremarkable and a CT angiogram was negative for pulmonary embolism. She had adequate rate control and was felt to be stable for discharge with close follow-up 3 days after discharge with cardiothoracic surgery as scheduled. #. Prolonged QTC, chronicity unknown, POA active QTC 543, Cardiology consultation as above On telemetry as above Magnesium supplementation as above Avoid known QTC prolonged bleeding medications if possible. No other arrhythmia on the hospital. #. Recent mitral valve repair, POA. Echo reveals good function of mitral valve replacement without regurgitation. #. Postsurgical pain, POA, active Status post mitral valve repair, transthoracic approach Patient is on oxycodone-acetaminophen 3-325 every 6 hours when necessary for pain. Continue home medication #. Chronic Hypothyroidism, POA, stable TSH 1.55, not on any home medications. Chronic obesity, POA, active BMI 34.7 Dietary/nutrition consult Patient is admitted to inpatient status, greater than 2 minutes and dissipated based on presenting symptoms, complexity of care, and anticipated risk of adverse events. Exam Vital Signs (Last) Date Time Temp Pulse Resp B/P Pulse Ox O2 Delivery O2 Flow Rate FiO2 05/15/17 09:10 77 05/15/17 09:02 36.8 16 121/54 97 Room Air 05/13/17 20:51 2 Exam Patient was seen and examined the day of discharge Test 05/13/17 19:55 05/14/17 03:00 05/15/17 03:25 Prothrombin Time 10.2sec (8.1-12.5) Prothromb Time International Ratio 0.95ratio Magnesium Level 1.8mg/dL (1.6-2.6) Troponin T < 0.010ug/L (0.0-0.011) Thyroid Stimulating Hormone (TSH) 1.550uIU/mL (0.450-4.500) Hold Griffith Top Tube Received (Received) White Blood Count 8.8th/mm3 (3.8-10.1) Red Blood Count 3.89mil/mm3 (3.90-5.20) Mean Corpuscular Volume 92.3fL (81-100) Mean Corpuscular Hemoglobin 30.3pg (27.0-35.0) Mean Corpuscular Hemoglobin Concent 32.9% (32.0-37.0) Red Cell Distribution Width 12.0% (12.3-15.4) Platelet Count 269bil/L (150-400) Neutrophils (%) (Auto) 61.9% (40-74) Lymphocytes (%) (Auto) 25.3% (14-46) Monocytes (%) (Auto) 10.7% (4-12) Eosinophils (%) (Auto) 1.8% (0-5) Basophils (%) (Auto) 0.2% (0-3) Sodium Level 141mEq/L (134-144) Potassium Level 4.4mEq/L (3.5-5.2) Chloride Level 106mEq/L (97-108) Carbon Dioxide Level 20mmol/L (18-29) Blood Urea Nitrogen 14mg/dL (8-27) Creatinine 0.49mg/dL (0.57-1.00) Estimat Glomerular Filtration Rate 185mL/min (>59) Glucose Level 108mg/dL (60-99) Calcium Level 8.9mg/dL (8.5-10.1) Total Bilirubin 0.3mg/dL (0.0-1.2) Aspartate Amino Transf (AST/SGOT) 15U/L (0-50) Alanine Aminotransferase (ALT/SGPT) 9U/L (0-32) Alkaline Phosphatase 41U/L (25-165) Total Protein 6.1g/dL (6.4-8.4) Albumin 3.7g/dL (3.4-5.0) Hemoglobin 11.3g/dL (12.0-15.6) Hematocrit 34.6% (35.0-46.0) Activated Partial Thromboplast Time 55.3sec (22.8-33.0) Discharge Medications Discharge Medications Apixaban (Eliquis) 5 Mg Tablet 5 MG PO BID Prescribed by: NILESH SIN MD Colchicine (Colchicine) 0.6 Mg Tablet 0.6 MG PO DAILY (Reported) Diltiazem ER (Cardizem CD) 180 Mg Cap.er.24h 180 MG PO BID Prescribed by: NILESH SIN MD Folic Acid (Folic Acid) 1 Mg Tablet 1 MG PO DAILY (Reported) Multivitamin (Multi Vitamin Daily) 1 Each Tablet 1 EACH PO DAILY (Reported) As needed oxyCODONE-Acetaminophen 5-325 mg (oxyCODONE-Acetaminophen 5-325 mg) 1 Each Tablet 1 TAB PO Q4H PRN PRN For Pain (Reported) Followup Plan Disposition: Home Discharge Diet: No restrictions Discharge Activity: Limited until seen by PCP Patient Instructions Follow-up with Dr. Haywood, your cardiothoracic surgery next Thursday as scheduled. Time spent 40 minutes Nilesh Sin MD May 15, 2017 12:56
--- NOTE | 2017-05-15 13:16 | NUR ---
Social Work: Discharge D: Pt discussed in am rounds. Pt is medically stable for discharge home. Per MD pt has no sw needs. EMR reviewed, pt has been ambulating I during admission and lives at home with her spouse. no social work needs identified. A: Pt who is I at baseline P: Anticipate pt to discharge home via POV, ALEJANDRA Ambrosio
--- NOTE | 2017-05-15 13:30 | NUR ---
Discharge note Patient a/o x 4, denies pain, nausea or sob. Patient oob amb indep in room steady gait. VSS, tele A fib 70-80's at rest. IV SL x2 and tele removed intact. Patient given discharge instructions, medication reconciliation, new prescriptions, info on diagnosis and new meds. All questions answered. Family took belongings down to car at discharge. Patient amb to lobby with staff and discharged home with family.
--- NOTE | 2017-05-18 12:29 | DRSVH ---
[facility] [address] [place] [address] Echocardiogram Report Name: NATALIA CLINTON LStudy Date: 05/15/2017 Height: 65 in Hospital Exam Location: [facility] Weight: 209 lb Gender: Female BSA: 2.0 m2 : 1955 Age: 61 yrs BP: 116/71 mmHg Reason For Study: CHEST PAIN Ordering Physician: FRANKI BAUM Performed By: Phill Pérez Referring Physician: Dilma WALLIS Interpretation Summary There is normal left ventricular wall thickness. The ejection fraction is estimated to be 55-60%. An annuloplasty ring is noted in the mitral position. There is no mitral regurgitation. The right ventricular systolic pressure is estimated at 24 mmHg assuming a right atrial pressure of 3 mm Hg. Procedure: A two-dimensional transthoracic echocardiogram with color flow and Doppler was performed. The study quality was technically adequate. There is no prior echocardiogram noted for this patient. The patient was in normal sinus rhythm during the exam. Left Ventricle: The left ventricle is normal in size. There is normal left ventricular wall thickness. The ejection fraction is estimated to be 55-60%. Septal motion is consistent with conduction abnormality. Right Ventricle: The right ventricle is normal size. Right ventricular systolic function is borderline reduced. Atria: Both atria are normal in size. The interatrial septum is intact with no evidence for an atrial septal defect. Mitral Valve: The patient is S/P mitral valve repair performed 04/23/17. An annuloplasty ring is noted in the mitral position. There is no mitral regurgitation. Aortic Valve: The aortic valve is trileaflet. The aortic valve opens well. No aortic regurgitation is present. Tricuspid Valve: The tricuspid valve is normal in structure and function. There is trace tricuspid regurgitation. The right ventricular systolic pressure is estimated at 24 mmHg assuming a right atrial pressure of 3 mm Hg. Pulmonic Valve: The pulmonic valve is normal in structure and function. There is trace pulmonic regurgitation. Great Vessels: The aortic root is normal size. The dimensions of the ascending aorta are normal. The pulmonary artery is normal size. The IVC is of normal diameter and collapses greater than 50% with a sniff. This suggests a low right atrial pressure of 3 mm Hg. Pericardium/ Pleura There is no pericardial effusion. There is no pleural effusion. MMode/2D Measurements & Calculations LVIDd: 5.0 cmLA dimension: 3.9 cm RA long axis: 5.6 cm Ao root diam LVIDs: 3.2 cm FS: 36.3 % LA A2 area: 21.6 cm RA area: 20.6 cm Aortic Jxn: 2.6 cm EPSS: 0.31 cmLA A4 area: 20.0 cm RA vol: 64.7 ml asc Aorta Diam IVSd: 0.98 cmLA length (vol) RA : 32.1 ml/m2 LVPWd Ao Arch Diam (Prox : 0.9cm LA vol: 61.6 ml Trans): 2.6 cm LA vol index IVC diam: 2.0 cm EDV(MOD-sp2) LV serrano. diameter/BSA LV sys. diameter/BSA RVD1 (basal) (cm/m^2): 2.5 (cm/m^2): 1.6 : 3.6 cm ESV(MOD-sp2) EF(MOD-sp2) RVD2 (mid) : 2.6 cm Doppler Measurements & Calculations Ao V2 max MV E max jaspreet MV E/A: 0.94 TR max jaspreet : 161.2 cm/sec : 127.8 cm/sec Med Peak E' Jaspreet : 228.1 cm/sec Ao max PG MV A max jaspreet TR max PG : 10.4 mmHg : 135.9 cm/sec E/E' med: 15.6 : 20.8 mmHg Ao mean PG MV A dur: 0.15 sec PA V2 max : 5.7 mmHg : 88.8 cm/sec PA mean PG PA Accel Time : 0.06 sec MV dec time Ao V2 mean PA V2 mean : 0.18 sec : 112.6 cm/sec : 64.1 cm/sec Ao V2 VTI: 28.6 cm PA pr(Accel) : 43.0 mmHg Electronically signed by: Aaron Carnes on Reading Physician:05/18/2017 12:28 PM
== END 2017-05-15 13:30 | disposition home or self-care (01) | DRG 310 ==
LOC: SED 19:43 → PCC 21:51
PROVIDERS: ADMIT Hospitalist; ATTEND Hospitalist
PROC: 3E033RZ Introduction of Antiarrhythmic into Peripheral Vein, Percutaneous Approach (ICD-10-PCS; principal; 2017-05-13)
DX: I48.92 Unspecified atrial flutter (principal); I48.91 Unspecified atrial fibrillation; E03.9 Hypothyroidism, unspecified; E66.9 Obesity, unspecified; G89.18 Other acute postprocedural pain; Z79.82 Long term (current) use of aspirin; Z68.34 Body mass index [BMI] 34.0-34.9, adult; Z79.01 Long term (current) use of anticoagulants; Z87.891 Personal history of nicotine dependence; Z95.4 Presence of other heart-valve replacement

== ENCOUNTER 2017-06-02 21:18 | Emergency (ER) | payer OTHER ==
[~2017-06-02] VITALS: Ht 165.1 cm; Wt 9.1 kg
[~2017-06-02 21:18] MED LIST: APIX5TAB PO; COLC0.6T55 PO; DILT180C66 PO; FOLI1TAB18 PO; MULT-1018 PO; OXYC1TAB24 PO
[2017-06-02 21:26] VITALS: BP 91/63; PULSE 110; RESP 16; O2SAT 95
--- NOTE | 2017-06-02 22:06 | DRSVH ---
PROCEDURE: X-RAY CHEST ONE VIEW, PORTABLE ([id number]) INDICATIONS: rapid HR, recent mitral valve repair TECHNIQUE: One view of the chest was acquired. COMPARISON: [facility], CR, XR CHEST 1VW (PORTABLE), 05/13/2017, 20:08. FINDINGS: Surgical changes and devices: Patient is status post valvular repair. Lungs and pleura: Pulmonary scarring is present at the left midlung. No acute airspace opacities. No pleural effusion or pneumothorax. Mediastinum: Mediastinal contours appear normal. Heart size is mildly enlarged, as before. Bones and chest wall: No suspicious bony lesions. Overlying soft tissues appear unremarkable. IMPRESSION: Pulmonary scarring in the left midlung is unchanged. No other acute cardiopulmonary findi ngs. Dictated by: Mabel Camp M.D. on 06/02/2017 at 22:03 Approved by: Mabel Camp M.D. on 06/02/2017 at 22:04
[2017-06-02 22:16] LABS: BASOPHILS % (AUTO) 0.6 % (0-3); EOSINOPHILS % (AUTO) 3.7 % (0-5); MONOCYTES % (AUTO) 11.1 % (4-12); Mean Corpuscular Hemoglobin 29.8 pg (27.0-35.0); NEUTROPHILS % (AUTO) 59.4 % (40-74); Platelet Count 411 bil/L (150-400)
--- NOTE | 2017-06-02 22:19 | ED.REPORT ---
HPI-General Illness Date of Service Jun 02, 2017 ED Provider: Dr. Snyder 61 y/o female with a hx of mitral valve repair, A-FIb and hypothyroid presents to the ED complaining of rapid heart rate around 130s while she was at rest 2 hours ago. The pt states she was feeling okay until a couple of weeks after her mitral valve surgery when she became hypotensive and was taken off Metoprolol. She was also admitted to the hospital 3 weeks ago for A-fib and was discharged 2 days later. Today, the pt was at her transmission system operator's appointment who noted improvement and recommended lowering Cardizem dose. Soon after the appointment, the pt began noticing rapid heart rate. She states she often notices rapid heart rate when she eats. She denies SOB at any point or any other symptoms. The pt reports feeling significantly better on her way here and is asymptomatic in the ED.The pt took Diltazem 2 hours ago. Nursing Notes Stated Complaint: A-FIB/FLUTTER Chief Complaint: Dysrhythmia/Cardiac Nursing Notes Reviewed: Yes Allergies: Coded Allergies: No Known Allergies (Unverified , 05/13/17) Scheduled Apixaban (Eliquis) 5 Mg Tablet 5 MG PO BID Diltiazem ER (Cardizem CD) 180 Mg Cap.er.24h 180 MG PO BID Multivitamin (Multi Vitamin Daily) 1 Each Tablet 1 EACH PO DAILY Scheduled PRN oxyCODONE-Acetaminophen 5-325 mg (oxyCODONE-Acetaminophen 5-325 mg) 1 Each Tablet 1 TAB PO Q4H PRN PRN For Pain General Time Seen by MD: 22:19 Chief Complaint Other (rapid heart rate) Hx Obtained From: Patient Arrived By: Walk-in Sudden in Onset?: Yes Onset Occurred: 1 - 4 hours ago Symptom Duration: Since onset Severity: Current: No pain currently Severity: Maximum: No pain Recent Healthcare: Recent doctor visit Similar Sx Previous: Yes Past Medical History Past Medical History A-fib hypothyroid Past Surgical History Mitral valve repair Smoking History Former Smoker, Unknown if Ever Smoker Social History Other Social History: Good social support Ambulatory Status Independent Review of Systems Reports: rapid heart rate Full Review of Systems Respiratory: Denies: Shortness of breath Complete sys rev & neg: except as marked. Physical Exam Vital Signs Vital Signs Date Time Temp Pulse Resp B/P Pulse Ox O2 Delivery O2 Flow Rate FiO2 06/03/17 00:21 36.6 78 10 110/52 96 Room Air 06/02/17 23:08 71 13 115/56 95 Room Air 06/02/17 21:26 36.9 110 16 91/63 95 Room Air Initial VS: Reviewed Head / Eyes: Atraumatic, Normocephalic Neck: Supple, Non-tender, Full range of motion Extremities: Vascular intact, Neuro intact, No swelling, No tenderness Skin: Warm, Dry, No cyanosis Neurologic: Alert, Oriented, Nonfocal General/Constitutional: Awake, Alert, No acute distress, Cooperative Respiratory / Chest: Atraumatic, Breath sounds NL, Breath sounds = bilat, No respiratory distress, No rales, No rhonchi, No wheezing Cardiovascular: Heart rate NL, Heart sounds NL, No gallop, No murmurs, No rubs Heart Rate / Rhythm: Positive: Irreg irregular rhythm Abdomen: Atraumatic, Soft, Non-tender, No guarding, No rebound, BS normoactive Interpretation & Diagnostics Lab Results Interpretation Result Diagram: 06/02/17 2212 06/02/17 2212 Test 06/02/17 22:12 06/02/17 22:30 White Blood Count 8.6th/mm3 (3.8-10.1) Red Blood Count 4.09mil/mm3 (3.90-5.20) Hemoglobin 12.2g/dL (12.0-15.6) Hematocrit 36.8% (35.0-46.0) Mean Corpuscular Volume 90.0fL (81-100) Mean Corpuscular Hemoglobin 29.8pg (27.0-35.0) Mean Corpuscular Hemoglobin Concent 33.2% (32.0-37.0) Red Cell Distribution Width 12.3% (12.3-15.4) Platelet Count 411bil/L (150-400) Neutrophils (%) (Auto) 59.4% (40-74) Lymphocytes (%) (Auto) 25.0% (14-46) Monocytes (%) (Auto) 11.1% (4-12) Eosinophils (%) (Auto) 3.7% (0-5) Basophils (%) (Auto) 0.6% (0-3) Prothrombin Time 10.6sec (8.1-12.5) Prothromb Time International Ratio 0.99ratio Sodium Level 140mEq/L (134-144) Potassium Level 4.2mEq/L (3.5-5.2) Chloride Level 102mEq/L (97-108) Carbon Dioxide Level 19mmol/L (18-29) Blood Urea Nitrogen 10mg/dL (8-27) Creatinine 0.52mg/dL (0.57-1.00) Estimat Glomerular Filtration Rate 172mL/min (>59) Glucose Level 111mg/dL (60-99) Calcium Level 9.3mg/dL (8.5-10.1) Magnesium Level 2.0mg/dL (1.6-2.6) Total Bilirubin 0.2mg/dL (0.0-1.2) Aspartate Amino Transf (AST/SGOT) 16U/L (0-50) Alanine Aminotransferase (ALT/SGPT) 13U/L (0-32) Alkaline Phosphatase 59U/L (25-165) Troponin T 0.010ug/L (0.0-0.011) Pro-B-Type Natriuretic Peptide 570.9pg/mL (0-287) Total Protein 7.6g/dL (6.4-8.4) Albumin 4.1g/dL (3.4-5.0) Hold Urine Received (Received) ECG Interpretation ECG Interpretation: Atrial flutter. Rate 110. Ventricular premature complex. Time: 21:29 Interpreted by: ED physician X-Ray Chest Interpretation Chest Xray Interpretation: IMPRESSION: Pulmonary scarring in the left midlung is unchanged. No other acute cardiopulmonary findings. Dictated by: Mabel Camp M.D. on 06/02/2017 at 22:03 Approved by: Mabel Camp M.D. on 06/02/2017 at 22:04 View: Portable, 1 view Interpretation / Wet Read by: Interpret - Radiologist Re-Eval/Medical Decision Med Decision/Clinical Course 7-year-old with intermittent A. fib/flutter presents with controlled A. flutter. She had an extra dose of diltiazem as directed at home and it appears to be functioning at this point, with rates at about 89-108. Negative enzymes and no other suggestion of ischemia resulting. Already anticoagulated. Home for follow-up with her transmission system operator. No need for hospitalization at this point Time of Eval: 23:54 Patient Status: Condition resolved Re-Evaluation/Progress Note: Rechecked pt. She remains assymptomatic. Discussed lab results, imaging results, diagnosis and plan to discharge. Pt understands and agrees with the plan. F/U instructions and RTER warning given. All questions addressed. Counseled Regarding: Diagnosis, Lab results, Need for follow-up, When/why to return to ED Discharge & Departure Primary Impression: Atrial flutter with controlled response Disposition: Home Discharge Condition All VS Reviewed: Yes Condition: Stable Patient Instructions: Atrial Flutter (ED) Additional Instructions: Call your transmission system operator first thing this morning. Nothing to eat or drink tonight until you talk with his office, in case they wish to have you in for cardioversion. Continue current medicines as directed. Return here or present at [facility] if you develop any chest pain shortness of breath nausea vomiting sweating or any other new symptoms of concern Present here also if you detect sustained palpable rates above 130. Referrals: Ibeth Shine MD (PCP) Robel Dominguez MD (Family) Duongibkristopher Attestation Portions of this note were transcribed by Jacek Mackay. I, Dr. Snyder, personally performed the history, physical exam and medical decision-making;I reviewed and confirmed the accuracy of the information in the transcribed note. Signed by Devon Puckett. 06/03/17 01:18 copies to: Ibeth Shine MD, Christopher W MD Jun 02, 2017 22:19 Jacek Mackay Jun 02, 2017 22:35
[2017-06-02] MEDS ORDERED: Diltiazem 5 mg/mL 5 mL Inj IVPUSH PRN (22:30)
[2017-06-02 22:40] LABS: INR 0.99 ratio
[2017-06-02 22:47] LABS: TROPONIN T 0.01 ug/L (0.0-0.011)
[2017-06-02 23:08] VITALS: BP 115/56; PULSE 71; RESP 13; O2SAT 95
[2017-06-03 00:21] VITALS: BP 110/52; PULSE 78; RESP 10; O2SAT 96
== END 2017-06-03 00:22 | disposition home or self-care (01) ==
LOC: SED 21:18
DX: I48.92 Unspecified atrial flutter (principal); Z87.891 Personal history of nicotine dependence

== ENCOUNTER 2017-06-26 11:33 | Emergency (ER) | payer OTHER ==
[~2017-06-26] VITALS: Ht 165.1 cm; Wt 88.6 kg
[~2017-06-26 11:33] MED LIST changes: -COLC0.6T55 PO; -FOLI1TAB18 PO
[2017-06-26 11:40] VITALS: BP 124/89; PULSE 140; RESP 16; O2SAT 99
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
[2017-06-26] MEDS ORDERED: Diltiazem 5 mg/mL 5 mL Inj IVPUSH ONE ×2 (11:55→14:30)
[2017-06-26 12:18] VITALS: BP 101/75; PULSE 73; RESP 18; O2SAT 97
[2017-06-26 12:24] LABS: BASOPHILS % (AUTO) 0.5 % (0-3); EOSINOPHILS % (AUTO) 1.6 % (0-5); MONOCYTES % (AUTO) 10.2 % (4-12); Mean Corpuscular Hemoglobin 28.3 pg (27.0-35.0); Mean Corpuscular Volume 86.3 fL (81-100); NEUTROPHILS % (AUTO) 62.5 % (40-74); Platelet Count 420 bil/L (150-400)
[2017-06-26 12:42] LABS: TROPONIN T 0.01 ug/L (0.0-0.011)
[2017-06-26 13:09] VITALS: BP 118/59; PULSE 76; RESP 13; O2SAT 96
--- NOTE | 2017-06-26 13:21 | DRSVH ---
PROCEDURE: X-RAY CHEST ONE VIEW, PORTABLE ([id number]) INDICATIONS: afgib TECHNIQUE: One view of the chest was acquired. COMPARISON: [facility], CT, CT ANGIO CHEST PE, 05/14/2017, 13:28. [facility] , CR, XR CHEST 1VW (PORTABLE), 06/02/2017, 21:43. FINDINGS: Surgical changes and devices: There is a prosthetic heart mitral valve. Lungs and pleura: Linear densities in the left upper lung zone and right lower lung zone are likely discoid atelectasis. No pleural effusions or pneumothorax. Mediastinum: Mediastinal contours appear normal. Heart size is normal. Bones and chest wall: No suspicious bony lesions. Overlying soft tissues appear unremarkable. IMPRESSION: No acute cardiopulmonary disease. Bilateral atelectasis. Dictated by: Amelia Pinedo M.D. on 06/26/2017 at 12:13 Approved by: Amelia Pinedo M.D. on 06/26/2017 at 12:20
[2017-06-26 13:53] VITALS: BP 120/51; PULSE 16; RESP 19; O2SAT 96
[2017-06-26] MEDS ORDERED: DILT60TA PO (14:34)
[2017-06-26 15:24] VITALS: BP 102/79; PULSE 87; RESP 19; O2SAT 97
== END 2017-06-26 15:25 | disposition home or self-care (01) ==
LOC: SED 11:33
DX: I48.92 Unspecified atrial flutter (principal); E03.9 Hypothyroidism, unspecified; Z87.891 Personal history of nicotine dependence; Z79.01 Long term (current) use of anticoagulants; Z95.2 Presence of prosthetic heart valve